=== PATIENT | male | born 1995 | race Caucasian/White ===

== ENCOUNTER 2023-01-09 21:13 | Emergency (ER) | payer MEDICAID, SELFPAY ==
[2023-01-09 21:15] VITALS: BP 111/76; PULSE 83; RESP 14; TEMP 36.4; O2SAT 99
[2023-01-09] MEDS: FLUORESCEIN SOD 1 MG/STRIP EACH EYE (22:43)
[2023-01-09] MEDS: TETRACAINE HCL 0.5% OPHTH SOLN 4 ML BTL 1 DROP EACH EYE (22:43)
--- NOTE | 2023-01-09 23:04 | ED.EYEPROB ---
HPI - Eye Problem General Chief complaint: Eye Problems Stated complaint: redenss to left eye Time Seen by Provider: 01/09/23 22:28 Source: patient Mode of arrival: ambulatory Limitations: no limitations History of Present Illness HPI Narrative: Patient is a 27-year-old male who presents to ED with report of bilateral eye issues. Patient reports having redness, drainage, matting, burning of his eyes for the last 3 days. He states symptoms started in the left eye and has not spread to the right eye. He has tried using [id number] eyedrops without relief. He denies any vision changes, blurry vision, eye pain, fevers, headache. He does not wear contacts. Related Data Allergies Allergy/AdvReac Type Severity Reaction Status Date / Time acetaminophen Allergy Unresponsiv Verified 01/09/23 21:14 [From Tylenol-Codeine #3] e codeine Allergy Unresponsiv Verified 01/09/23 21:14 [From Tylenol-Codeine #3] e Review of Systems Review of Systems: CONSTITUTIONAL: Denies fever, chills, or sweats. EYES: See HPI. ENT: Denies rhinorrhea, congestion, sore throat. CARDIOVASCULAR: Denies chest pain. RESPIRATORY: Denies dyspnea. GASTROINTESTINAL: Denies abdominal pain, nausea, vomiting. All systems reviewed & are unremarkable except as noted in HPI and below Exam Narrative: GENERAL: Well appearing, well-nourished, non-toxic, in no acute distress. HEAD: Normocephalic, atraumatic. EYES: PERRLA/EOMI, conjunctiva injected bilaterally, L > R. Purulent drainage from eyes bilaterally, L > R, matting of eyelashes on L eye. Mild chemosis of L eye. No pain with EOM. NECK: Supple. No adenopathy, no masses. RESPIRATORY: Airway patent, respirations nonlabored. Clear to auscultation bilaterally, no rales, rhonchi, wheezing. CARDIOVASCULAR: Regular rate and rhythm without murmurs, rubs, or gallops. Radial pulses 2+ and equal bilaterally. MUSCULOSKELETAL: Moves all extremities. Strength/ROM intact without gross deformities. SKIN: Warm, dry, normal color. No rashes. NEURO: A&O X3. Speech clear. Cranial nerves II-XII grossly intact. Steady gait. No ataxic movements. PSYCHIATRIC: Appropriate mood and affect. Normal interaction. Course Vital Signs Vital signs: Vital Signs Temperature 97.6 F 01/09/23 21:15 Pulse Rate 83 01/09/23 21:15 Respiratory Rate 14 01/09/23 21:15 Blood Pressure 111/76 01/09/23 21:15 Pulse Oximetry 99 01/09/23 21:15 Oxygen Delivery Room Air 01/09/23 21:15 Temperature 97.6 F 01/09/23 21:15 Pulse Rate 87 01/09/23 23:34 Respiratory Rate 15 01/09/23 23:34 Blood Pressure 117/67 01/09/23 23:34 Pulse Oximetry 99 01/09/23 23:34 Oxygen Delivery Room Air 01/09/23 21:15 MDM - Eye Problem MDM Narrative Medical decision making narrative: Exam consistent with conjunctivitis, likely bacterial given amount of purulent drainage/matting. Patient denying vision changes. Denying pain with eye movements. No signs of periorbital/orbital cellulitis. No focal neurologic deficits. Fluorescein staining with Polanco lamp examination was performed and no signs of conjunctival or corneal abrasion. Patient will be treated with antibiotic ointment. Advise close follow-up with instructor of education for further evaluation. Return precautions discussed. Medical Records Attestation: I reviewed the patient's medical records. Discharge Plan Discharge Clinical Impression: Bacterial conjunctivitis Patient Disposition: Home, Self-Care Condition: Stable Instructions: Antibiotic Form, Conjunctivitis (ED) Additional Instructions: Utilize antibiotic ointment as prescribed. Avoid touching eyes as this is contagious. Follow-up with instructor of education for further evaluation. Return to the ED if you experience vision changes, severe pain, unable to keep down food or drink, fevers, or any other symptoms of concern. Prescriptions: New erythromycin 5 mg/gram (0.5 %) ointment 0.5 inch EACH EYE QID
[2023-01-09 23:34] VITALS: BP 117/67; PULSE 87; RESP 15; O2SAT 99
[2023-01-09] MEDS: ERYTHROMYCIN OPHTH OINTMENT 1 GM TUBE 1 APPLIC EACH EYE (23:34)
== END 2023-01-09 23:36 | disposition home or self-care (01) ==
PROVIDERS: Emergency Provider Physician Assistant
DX: H10.9 Unspecified conjunctivitis (principal)
CPT/HCPCS: 99283; A9270